=== PATIENT | male | born 1985 | race Caucasian/White ===

== ENCOUNTER 2016-05-03 14:14 | Emergency (ER) | payer MEDICAID ==
[~2016-05-03] VITALS: Ht 177.8 cm; Wt 81.6 kg
[~2016-05-03 14:14] MED LIST: COLACE100 MG ORAL; LIDOCAINE HC RC; LIDOCAINE HCL5 ML MM; NKM
[2016-05-03 15:09] VITALS: BP 133/76
[2016-05-03] MEDS ORDERED: Famotidine 20 MG/ 2ML VIAL IVP ONE (15:15)
[2016-05-03 16:05] LABS: MEAN CORPUSCULAR HEMOGLOBIN 33.2 PG (27.0-31.0); MEAN CORPUSCULAR VOLUME 95 FL (80-99); MEAN PLATELET VOLUME 7.3 FL (6.5-10.1); PLATELET COUNT 120 K/UL (150-450); RED BLOOD COUNT 3.79 M/UL (4.70-6.10); RED CELL DISTRIBUTION WIDTH 11.4 % (11.6-14.8); WHITE BLOOD COUNT 3.3 K/UL (4.8-10.8)
[2016-05-03 16:20] LABS: AMMONIA 30 umol/L (16-60)
[2016-05-03 16:21] LABS: ALANINE AMINOTRANSFERASE 18 U/L (3-41); ALBUMIN/GLOBULIN RATIO 1.5 (1.0-2.7); ALCOHOL < 10 mg/dL; ANION GAP 12 (5-15); ASPARTATE AMINO TRANSFERASE 17 U/L (5-40); CALCIUM 9.1 mg/dL (8.6-10.2); CARBON DIOXIDE 27 mEQ/L (20-30); CHLORIDE 101 mEQ/L (98-107); GLOMERULAR FILTRATION RATE > 60 mL/min (>60); HEMOLYSIS 4; LIPASE 19 U/L (< 60); POTASSIUM 4.3 mEQ/L (3.4-4.9); SODIUM 140 mEQ/L (135-145); TOTAL PROTEIN 6.5 g/dL (6.6-8.7)
[2016-05-03 16:39] LABS: BASOPHILS % (AUTO) 1.1 % (0.0-2.0); EOSINOPHILS % (AUTO) 0.8 % (0.0-3.0); LYMPHOCYTES % (AUTO) 31.1 % (20.0-45.0); MONOCYTES % (AUTO) 11.4 % (1.0-10.0); NEUTROPHILS % (AUTO) 55.6 % (45.0-75.0)
[2016-05-03 16:46] VITALS: BP 122/79
[2016-05-03 16:46] LABS: APPEARANCE,URINE CLEAR; KETONES,URINE NEGATIVE (NEGATIVE); LEUKOCYTE ESTERASE ,URINE NEGATIVE (NEGATIVE); NITRITE,URINE NEGATIVE (NEGATIVE); PH,URINE 7 (4.5-8.0); PROTEIN,URINE NEGATIVE (NEGATIVE); UROBILINOGEN,URINE 1 MG/DL (0.0-1.0)
[2016-05-03 16:48] LABS: PROTHROMBIN TIME 10.4 SEC (9.30-11.50)
[2016-05-03 18:56] VITALS: BP 124/76
[2016-05-03] MEDS ORDERED: PEPCID20 MG ORAL (19:04)
[2016-05-03] MEDS ORDERED: BENTYL10 MG ORAL (19:04)
[2016-05-03 19:13] VITALS: BP 124/76
--- NOTE | 2016-05-04 03:59 | Emergency Room Report ---
History of Present Illness General Chief Complaint: Gastrointestinal Bleed Source: Patient Present Illness HPI Patient with 1 week of bloating and passing blood per rectum for 3 days without stool. No NVD, dysuria. Somewhat dehydrated. Having night sweats. 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 Had this happen once before when he had shigella. Also seen in October last year with hemorrhoid. No recent travel, IVDA, exposure to hepatitis, raw seafood, constipation, diarrhea. No fevers, chest pain, URI sy, rashes, headache, extremity pain. 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 Reviewed Nursing Documentation: PMH: Agreed, PSxH: Agreed Nursing Documentation-PMH Past Medical History: No History, Except For Review of Systems All Other Systems: negative except mentioned in HPI Physical Exam Vital Signs Date Time Temp Pulse Resp B/P Pulse Ox O2 Delivery O2 Flow Rate FiO2 05/03/16 14:17 98.2 94 18 133/76 99 Room Air Sp02 EP Interpretation: reviewed, normal General Appearance: well appearing, no apparent distress, GCS 15 Head: normocephalic Eyes: bilateral eye PERRL, bilateral eye normal inspection ENT: moist mucus membranes Neck: supple Respiratory: lungs clear, normal breath sounds Cardiovascular #1: regular rate, rhythm Cardiovascular #2: 2+ radial (R) Gastrointestinal: normal inspection, normal bowel sounds, non tender, no mass, non-distended Rectal: heme positive stool - minimally = brown Musculoskeletal: back normal, gait/station normal, normal range of motion Neurologic: alert, oriented x3, grossly normal Psychiatric: anxious Skin: normal inspection, warm/dry Medical Decision Making Diagnostic Impression: Primary Impression: Gastrointestinal hemorrhage Qualified Codes: K62.5 - Hemorrhage of anus and rectum Additional Impression: Anemia Qualified Codes: D64.9 - Anemia, unspecified ER Course Patient with bloating and blood CO. DDX: hemorrhoid, hepatis, diverticulosis, proctitis, PUD, gastritis amongst others. Labs, abd xrays ordered. IV hydration and pepcid ordered. Labs remarkable for mild anemia. Patient greatly improved with treatment and able to move bowels. Told of need to f/u with MD (has appointment tomorrow). Given labs. Patient stable for outpatient observation and treatment. Laboratory Tests Test 05/03/16 15:52 White Blood Count 3.3 K/UL (4.8-10.8) L Red Blood Count 3.79 M/UL (4.70-6.10) L Hemoglobin 12.6 G/DL (14.2-18.0) L Hematocrit 36.0 % (42.0-52.0) L Mean Corpuscular Volume 95 FL (80-99) Mean Corpuscular Hemoglobin 33.2 PG (27.0-31.0) H Mean Corpuscular Hemoglobin Concent 35.0 G/DL (32.0-36.0) Red Cell Distribution Width 11.4 % (11.6-14.8) L Platelet Count 120 K/UL (150-450) L Mean Platelet Volume 7.3 FL (6.5-10.1) Neutrophils (%) (Auto) 55.6 % (45.0-75.0) Lymphocytes (%) (Auto) 31.1 % (20.0-45.0) Monocytes (%) (Auto) 11.4 % (1.0-10.0) H Eosinophils (%) (Auto) 0.8 % (0.0-3.0) Basophils (%) (Auto) 1.1 % (0.0-2.0) Prothrombin Time 10.4 SEC (9.30-11.50) Prothrombin Time INR 1.0 (0.9-1.1) PTT 29 SEC (23-33) Urine Color Pale yellow Urine Appearance Clear Urine pH 7 (4.5-8.0) Urine Specific [place] 1.005 (1.005-1.035) Urine Protein Negative (NEGATIVE) Urine Glucose (UA) Negative (NEGATIVE) Urine Ketones Negative (NEGATIVE) Urine Occult Blood Negative (NEGATIVE) Urine Nitrite Negative (NEGATIVE) Urine Bilirubin Negative (NEGATIVE) Urine Urobilinogen 1 MG/DL (0.0-1.0) H Urine Leukocyte Esterase Negative (NEGATIVE) Sodium Level 140 mEQ/L (135-145) Potassium Level 4.3 mEQ/L (3.4-4.9) Chloride Level 101 mEQ/L (98-107) Carbon Dioxide Level 27 mEQ/L (20-30) Anion Gap 12 (5-15) Blood Urea Nitrogen 7 mg/dL (7-23) Creatinine 1.0 mg/dL (0.7-1.2) Estimate Glomerular Filtration Rate > 60 mL/min (>60) Glucose Level 94 mg/dL (74-106) Calcium Level 9.1 mg/dL (8.6-10.2) Total Bilirubin 0.6 mg/dL (0.0-1.2) Aspartate Amino Transferase (AST) 17 U/L (5-40) Alanine Aminotransferase (ALT) 18 U/L (3-41) Alkaline Phosphatase 34 U/L (40-129) L Ammonia 30 umol/L (16-60) Total Creatine Kinase 239 U/L (38-174) H Total Protein 6.5 g/dL (6.6-8.7) L Albumin 3.9 g/dL (3.5-5.2) Globulin 2.6 g/dL Albumin/Globulin Ratio 1.5 (1.0-2.7) Lipase 19 U/L (< 60) Urine Opiates Screen Negative (NEGATIVE) Urine Barbiturates Screen Negative (NEGATIVE) Phencyclidine (PCP) Screen Negative (NEGATIVE) Urine Amphetamines Screen Negative (NEGATIVE) Urine Benzodiazepines Screen Negative (NEGATIVE) Urine Cocaine Screen Negative (NEGATIVE) Urine Marijuana (THC) Screen Positive (NEGATIVE) H Serum Alcohol < 10 mg/dL Other X-Ray Diagnostic Results Other X-Ray Diagnostic Results : X-Ray Ordered: abd EP Interpretation: Yes Findings: other - diffuse gas, no SBO or masses Number of Views: 1 Last Vital Signs Date Time Temp Pulse Resp B/P Pulse Ox O2 Delivery O2 Flow Rate FiO2 05/03/16 19:13 98.2 76 23 124/76 99 Room Air Status: improved Disposition: HOME, SELF-CARE Condition: Improved Scripts Dicyclomine Hcl* (BENTYL*) 10 Mg Capsule 10 MG ORAL Q8HR Y for bloating or cramps, #10 CAP Prov: Paul Faustin M.D. 05/03/16 Famotidine (PEPCID) 20 Mg Tablet 20 MG ORAL DAILY, #30 TAB 0 Refills Prov: Paul Faustin M.D. 05/03/16 Referrals: NON PHYSICIAN (PCP) Patient Instructions: Gastrointestinal Bleeding Additional Instructions: No aspirin, advil, aleve, alkaselzer, peptobismol or alcohol. Tylenol and mylanta OK. See your doctor tomorrow take a copy of your labs. Your MD might prescribe a vitamin with folate and iron. But studies need to be done to evaluate where you are bleeding. Paul Faustin M.D. May 04, 2016 03:59
--- NOTE | 2016-05-04 10:30 | Diagnostic Imaging Report ---
Indication: Abdominal distention Technique: Supine view of the abdomen Comparison: none Findings: Bowel gas pattern is unremarkable. No unusual masses or calcifications. Impression: No acute process This agrees with the preliminary interpretation provided by the emergency room physician
== END 2016-05-03 19:13 | disposition home or self-care (01) ==
LOC: EMR 15:15
DX: K92.2 Gastrointestinal hemorrhage, unspecified (principal); D64.9 Anemia, unspecified
CPT/HCPCS: 36415; 74000; 80053; 80300; 80329; 81003; 82140; 82550; 83690; 85025; 85610; 85730; 96360; 96374; 96375; 99284; J2405; S0028

== ENCOUNTER 2016-05-07 05:26 | Emergency (ER) | payer MEDICAID ==
[~2016-05-07] VITALS: Ht 177.8 cm; Wt 81.6 kg
[~2016-05-07 05:26] MED LIST changes: +BENTYL10 MG ORAL; +PEPCID20 MG ORAL
[2016-05-07] MEDS ORDERED: LIDOCAINE HCL5 ML MM (05:44)
[2016-05-07 05:57] VITALS: BP 131/84
--- NOTE | 2016-05-07 06:20 | Emergency Room Report ---
History of Present Illness General Chief Complaint: Gastrointestinal Illness Source: Patient Present Illness HPI 30 YO M with rectal pain for 1 day. History of hemorrhoids. States this is an "internal one" because he cant see it. Pain worse with bowel movement. Was here a few days ago for stomach bloating/constipation. Had labs done which showed "little anemia." has been taking stool softeners, applying topical prep -H, and suppositories without much relief. Denies abd pain, nausea/vomiting, diarrhea. States topical lidocaine gel has worked in the past. Allergies: Coded Allergies: No Known Allergies (Unverified , 10/24/15) Patient History Past Medical History: other - hemorrhoids Past Surgical History: none Pertinent Family History: none Social History: Denies: alcohol use, drug use, smoking Immunizations: UTD Reviewed Nursing Documentation: PMH: Agreed, PSxH: Agreed Nursing Documentation-PMH Hx Gastrointestinal Problems: Yes - shigella, hemmorrhoids Review of Systems All Other Systems: negative except mentioned in HPI Physical Exam Vital Signs Date Time Temp Pulse Resp B/P Pulse Ox O2 Delivery O2 Flow Rate FiO2 05/07/16 05:29 97.9 85 16 131/84 97 Room Air Sp02 EP Interpretation: reviewed, normal General Appearance: normal inspection, well appearing, no apparent distress, alert Head: atraumatic ENT: normal ENT inspection, hearing grossly normal, normal voice Neck: normal inspection, full range of motion, supple, no bony tend Respiratory: normal inspection, lungs clear, normal breath sounds, no respiratory distress, no retraction, no wheezing Cardiovascular #1: regular rate, rhythm, no edema Gastrointestinal: normal inspection, normal bowel sounds, non tender, soft, no guarding, no hernia Rectal: deferred Genitourinary: no CVA tenderness Musculoskeletal: normal inspection, back normal, normal range of motion, Phillip' s Sign negative Neurologic: normal inspection, alert, oriented x3, responsive, online education manager III-XII nml as tested, speech normal Psychiatric: normal inspection, judgement/insight normal, mood/affect normal Skin: normal inspection, normal color, no rash Lymphatic: normal inspection Medical Decision Making Diagnostic Impression: Primary Impression: Rectal pain ER Course 30 YO M with rectal pain, history of hemorrhoids. VSS. Afebrile. Non focal abdomen Likely hemorrhoids again RX topical lidocaine Recommended GI followup for definitive treatment DC home Last Vital Signs Date Time Temp Pulse Resp B/P Pulse Ox O2 Delivery O2 Flow Rate FiO2 05/07/16 05:57 97.9 72 16 131/84 97 Room Air Status: improved Disposition: HOME, SELF-CARE Condition: Improved Scripts Lidocaine Hcl (LIDOCAINE HCL) 5 Ml Jel.pf.desi 5 ML MM BID, #30 ML Prov: JAI EVANS M.D. 05/07/16 Referrals: [facility],REFERRING (PCP) Patient Instructions: Disposable Sitz Bath, Hemorrhoids, [id number] Additional Instructions: - Call your primary care doctor for GI doctor referral JAI EVANS M.D. May 07, 2016 06:20
== END 2016-05-07 06:00 | disposition home or self-care (01) ==
LOC: EMR 05:54
DX: K62.89 Other specified diseases of anus and rectum (principal); Z87.19 Personal history of other diseases of the digestive system
CPT/HCPCS: 99283